=== PATIENT | male | born 1970 | race Hispanic/Latino ===

== ENCOUNTER 2018-11-02 08:24 | Observation (INO) | payer BC ==
--- NOTE | 2018-11-02 09:14 | RAD REPORT ---
EXAM DESCRIPTION: RAD - Chest Single View - 11/02/2018 9:05 am CLINICAL HISTORY: CHEST PAIN Chest pain. COMPARISON: No comparisons FINDINGS: Portable technique limits examination quality. The lungs are grossly clear. The heart is normal in size. No displaced fractures. IMPRESSION: No acute intrathoracic process suspected.
[2018-11-02 09:19] LABS: Absolute Lymphocytes (CBC) 4.2 K/uL (0.7-4.9); Absolute Monocytes 1.3 K/uL (0.1-1.3); Basophils % 0.8 % (0-1.3); Eosinophils % 1.8 % (0-4.4); Hematocrit 48.6 % (39.6-49.0); Lymphocytes % 35.9 % (15.3-44.8); MPV 7.3 fL (7.6-11.3); Monocytes % 10.6 % (3.3-12.3); RBC Red Blood Cell Count 5.23 M/uL (4.33-5.43)
[2018-11-02 09:22] LABS: Protime INR 1.01
[2018-11-02 09:41] LABS: ALT/SGPT 96 U/L (12-78); AST/SGOT 28 U/L (15-37); Albumin 3.9 g/dL (3.4-5.0); Alkaline Phosphatase 55 U/L (45-117); BUN Blood Urea Nitrogen 12 mg/dL (7-18); Bicarbonate 28 mmol/L (21-32); Bilirubin Direct 0.1 mg/dL (0-0.2); Bilirubin Total 0.4 mg/dL (0.2-1.0); Glucose Level 65 mg/dL (74-106); Lipase 105 U/L (73-393); Magnesium 2.5 mg/dL (1.8-2.4); NT PRO-BNP 15 pg/mL (<125); Potassium 3.9 mmol/L (3.5-5.1); Protein, Total 7.4 g/dL (6.4-8.2); Sodium Level 141 mmol/L (136-145); Troponin (Emerg Dept Use Only) < 0.02 ng/mL (0.0-0.045)
--- NOTE | 2018-11-02 10:28 | ER ---
Nurse's Notes [facility] Name: Ciro Shane Age: 48 yrs Sex: Male : 1970 Arrival Date: 11/02/2018 Time: 08:27 Bed 20 Private MD: Mychal Minor T Diagnosis: Other chest pain;Essential (primary) hypertension;Tobacco use;Tobacco abuse counseling Presentation: 11/02 08:36 Presenting complaint: Patient states: intermittent chest pressure and lightheadedness ss that began 1 week ago. Pt reports it is worse when bending over and picking up items. Transition of care: patient was not received from another setting of care. Onset of symptoms was October 26, 2018. Risk Assessment: Do you want to hurt yourself or someone else? Patient reports no desire to harm self or others. Initial Sepsis Screen: Does the patient meet any 2 criteria? No. Patient's initial sepsis screen is negative. Does the patient have a suspected source of infection? No. Patient's initial sepsis screen is negative. Care prior to arrival: None. 08:36 Method Of Arrival: Ambulatory ss 08:36 Acuity: SARAHI 3 ss Historical: - Allergies: 08:37 No Known Allergies; ss - Home Meds: 08:37 Buspirone Oral [Active]; ss - PMHx: 08:37 Anxiety; ss - PSHx: 08:37 None; ss - Immunization history:: Adult Immunizations up to date. - Social history:: Smoking status: Patient uses tobacco products, 1.5 ppd. - Ebola Screening: : Patient denies exposure to infectious person Patient denies travel to an Ebola-affected area in the 21 days before illness onset. - Family history:: not pertinent. Screenin:15 Abuse screen: Denies threats or abuse. Nutritional screening: No deficits noted. em Tuberculosis screening: No symptoms or risk factors identified. Fall Risk None identified. Assessment: 10:10 General: Appears in no apparent distress. comfortable, Behavior is calm, cooperative, em Denies fever. Pain: Complains of pain in chest Pain radiates to left supraclavicular area Pain began x 1 week. Neuro: Level of Consciousness is awake, alert, obeys commands, Oriented to person, place, time, situation, Reports dizziness, since last night after bending over and picking 12 pack of sodas. Cardiovascular: Capillary refill < 3 seconds Patient's skin is warm and dry. Rhythm is sinus rhythm. Respiratory: Airway is patent Respiratory effort is even, unlabored, Respiratory pattern is regular, symmetrical, Breath sounds are clear bilaterally. GI: Abdomen is flat, Reports nausea. : Urine is clear. Derm: Skin is intact, Skin is pink, warm \T\ dry. Musculoskeletal: Range of motion: intact in all extremities. 10:15 General: The previous assessment is accurate, call light remains within reach. 11:01 Reassessment: Patient appears in no apparent distress at this time. Patient and/or em family updated on plan of care and expected duration. Pain level reassessed. Patient is alert, oriented x 3, equal unlabored respirations, skin warm/dry/pink. Patient denies pain at this time. Patient states feeling better. 12:00 Reassessment: Patient appears in no apparent distress at this time. Patient and/or em family updated on plan of care and expected duration. Pain level reassessed. Patient is alert, oriented x 3, equal unlabored respirations, skin warm/dry/pink. pending room assignment Patient denies pain at this time. Vital Signs: 08:37 BP 148 / 70; Pulse 68; Resp 17; Temp 97.2(TE); Pulse Ox 98% on R/A; Weight 92.99 kg; ss Height 5 ft. 10 in. (177.80 cm); Pain 0/10; 09:01 BP 135 / 87; Pulse 75; Resp 20; Pulse Ox 98% on R/A; mh5 10:00 BP 123 / 78; Pulse 72; Resp 17; Temp 97.8(O); Pulse Ox 95% on R/A; mh5 11:01 BP 145 / 83; Pulse 78; Resp 20; Pulse Ox 98% on R/A; mh5 12:31 BP 127 / 70; Pulse 72; Resp 24; Pulse Ox 94% on R/A; mh5 08:37 Body Mass Index 29.41 (92.99 kg, 177.80 cm) ED Course: 08:27 Patient arrived in ED. mr 08:27 Mychal Minor MD is Private Physician. mr 08:34 Quinton Shaw MD is Attending Physician. [facility] 08:37 Triage completed. ss 08:37 Arm band placed on right wrist. ss 08:58 Missed attempt(s): 20 gauge in right forearm. antecubital area. mh5 08:59 Allergy band placed. Placed in gown. Bed in low position. Call light in reach. Side 5 rails up X 1. Adult w/ patient. Pillow given. monitoring specialist on. Pulse ox on. NIBP on. 09:05 XRAY Chest (1 view) In Process Unspecified. EDMS 09:05 Inserted saline lock: 20 gauge in left antecubital area, using aseptic technique. Blood ph collected. 09:12 EKG done, by ED staff, reviewed by Quinton Shaw MD. 5 10:01 Heriberto Fajardo LVN is Primary Nurse. em 10:15 Patient maintains SpO2 saturation greater than 95% on room air. em 10:27 Belkis Magaña MD is Hospitalizing Provider. vinicio 12:49 No provider procedures requiring assistance completed. Patient admitted, IV remains in em place. Administered Medications: 10:28 Drug: Aspirin Chewable Tablet 324 mg Route: PO; em 11:00 Follow up: Response: No adverse reaction em 10:29 Drug: NS 0.9% 1000 ml Route: IV; Rate: 1 bolus; Site: left antecubital; em 10:35 Not Given (Physician Discretion): NS 0.9% 1000 ml IV at 125 ml/hr continuous em 10:47 Drug: Lopressor (metoprolol TARTRATE) 50 mg Route: PO; em 11:35 Follow up: Response: No adverse reaction em 10:47 Drug: Lovenox 1 mg/kg Route: Sub-Q; Site: right lower abdomen; em 11:00 Follow up: Response: No adverse reaction em 10:47 Drug: Nicoderm CQ 21 mg/24 hr 21 mg Route: Transdermal; Site: anterior chest wall; em 11:00 Follow up: Response: No adverse reaction em 12:14 Drug: NS 0.9% 1000 ml Route: IV; Rate: 125 ml/hr; Site: left antecubital; em Outcome: 10:27 Decision to Hospitalize by Provider. vinicio 12:39 Admitted to Tele accompanied by tech, family with patient, via wheelchair, room 425, em with chart, Report called to ANN Gonzalez 12:39 Condition: good em 12:39 Instructed on the need for admit, Demonstrated understanding of instructions. 12:52 Patient left the ED. em Signatures: Dispatcher [employer] Quinton Bansal MD MD cha Rivera, Akosua mr Scotty, Heriberto, MANAGER CLINICAL MANAGER CLINICAL em Bria Li RN RN ss Hall, Patricia, RN RN Alma Cheung [facility] Corrections: (The following items were deleted from the chart) 12:51 12:39 Admitted to Tele accompanied by tech, family with patient, via wheelchair, room em 425, with chart, Report called to ANN Gonzalez em
--- NOTE | 2018-11-02 10:28 | EDPHYS ---
Physician Documentation [facility] Name: Ciro Shane Age: 48 yrs Sex: Male : 1970 Arrival Date: 11/02/2018 Time: 08:27 Bed 20 Private MD: Mychal Minor T ED Physician Quinton Shaw HPI: 11/02 10:24 This 48 yrs old Male presents to ER via Ambulatory with complaints of Chest ivnicio Pressure. 10:24 The patient or guardian reports chest pain that is located primarily in the substernal vinicio area, epigastric area. Onset: 5 day(s) ago. The pain radiates to the right arm, the left shoulder. Associated signs and symptoms: The patient has no apparent associated signs or symptoms. The chest pain is described as a heaviness, a pressure. Duration: The patient or guardian reports multiple episodes, with no pattern. Modifying factors: The symptoms are alleviated by nothing. the symptoms are aggravated by exertion. Severity of pain: At its worst the pain was. Historical: - Allergies: 08:37 No Known Allergies; ss - Home Meds: 08:37 Buspirone Oral [Active]; ss - PMHx: 08:37 Anxiety; ss - PSHx: 08:37 None; ss - Immunization history:: Adult Immunizations up to date. - Social history:: Smoking status: Patient uses tobacco products, 1.5 ppd. - Ebola Screening: : Patient denies exposure to infectious person Patient denies travel to an Ebola-affected area in the 21 days before illness onset. - Family history:: not pertinent. ROS: 10:25 Constitutional: Negative for fever, chills, and weight loss, Eyes: Negative for injury, vinicio pain, redness, and discharge, ENT: Negative for injury, pain, and discharge, Neck: Negative for injury, pain, and swelling, Respiratory: Negative for shortness of breath, cough, wheezing, and pleuritic chest pain, Abdomen/GI: Negative for abdominal pain, nausea, vomiting, diarrhea, and constipation, Back: Negative for injury and pain, : Negative for injury, bleeding, discharge, and swelling, MS/Extremity: Negative for injury and deformity, Skin: Negative for injury, rash, and discoloration, Neuro: Negative for headache, weakness, numbness, tingling, and seizure, Psych: Negative for depression, anxiety, suicide ideation, homicidal ideation, and hallucinations, Allergy/Immunology: Negative for hives, rash, and allergies, Endocrine: Negative for neck swelling, polydipsia, polyuria, polyphagia, and marked weight changes, Hematologic/Lymphatic: Negative for swollen nodes, abnormal bleeding, and unusual bruising. 10:25 Cardiovascular: Positive for chest pain, of the left supraclavicular area, left clavicle, anterior aspect of left upper chest, left lateral anterior chest and left lateral posterior chest. Exam: 10:25 Constitutional: This is a well developed, well nourished patient who is awake, alert, vinicio and in no acute distress. Head/Face: Normocephalic, atraumatic. Eyes: Pupils equal round and reactive to light, extra-ocular motions intact. Lids and lashes normal. Conjunctiva and sclera are non-icteric and not injected. Cornea within normal limits. Periorbital areas with no swelling, redness, or edema. ENT: Nares patent. No nasal discharge, no septal abnormalities noted. Tympanic membranes are normal and external auditory canals are clear. Oropharynx with no redness, swelling, or masses, exudates, or evidence of obstruction, uvula midline. Mucous membranes moist. Neck: Trachea midline, no thyromegaly or masses palpated, and no cervical lymphadenopathy. Supple, full range of motion without nuchal rigidity, or vertebral point tenderness. No Meningismus. Chest/axilla: Normal chest wall appearance and motion. Nontender with no deformity. No lesions are appreciated. Cardiovascular: Regular rate and rhythm with a normal S1 and S2. No gallops, murmurs, or rubs. Normal PMI, no JVD. No pulse deficits. Respiratory: Lungs have equal breath sounds bilaterally, clear to auscultation and percussion. No rales, rhonchi or wheezes noted. No increased work of breathing, no retractions or nasal flaring. Abdomen/GI: Soft, non-tender, with normal bowel sounds. No distension or tympany. No guarding or rebound. No evidence of tenderness throughout. Back: No spinal tenderness. No costovertebral tenderness. Full range of motion. Male : Normal genitalia with no discharge or lesions. Skin: Warm, dry with normal turgor. Normal color with no rashes, no lesions, and no evidence of cellulitis. MS/ Extremity: Pulses equal, no cyanosis. Neurovascular intact. Full, normal range of motion. Neuro: Awake and alert, GCS 15, oriented to person, place, time, and situation. Cranial nerves II-XII grossly intact. Motor strength 5/5 in all extremities. Sensory grossly intact. Cerebellar exam normal. Normal gait. Psych: Awake, alert, with orientation to person, place and time. Behavior, mood, and affect are within normal limits. 10:25 Musculoskeletal/extremity: DVT Exam: No signs of deep vein thrombosis. no pain, no swelling, no tenderness, negative Homans' sign noted on exam, no appreciated bluish discoloration, no erythema, no increased warmth. Vital Signs: 08:37 BP 148 / 70; Pulse 68; Resp 17; Temp 97.2(TE); Pulse Ox 98% on R/A; Weight 92.99 kg; ss Height 5 ft. 10 in. (177.80 cm); Pain 0/10; 09:01 BP 135 / 87; Pulse 75; Resp 20; Pulse Ox 98% on R/A; mh5 10:00 BP 123 / 78; Pulse 72; Resp 17; Temp 97.8(O); Pulse Ox 95% on R/A; mh5 11:01 BP 145 / 83; Pulse 78; Resp 20; Pulse Ox 98% on R/A; mh5 12:31 BP 127 / 70; Pulse 72; Resp 24; Pulse Ox 94% on R/A; mh5 08:37 Body Mass Index 29.41 (92.99 kg, 177.80 cm) ss MDM: 08:34 Patient medically screened. [facility] 10:26 Data reviewed: vital signs, nurses notes, lab test result(s), EKG, radiologic studies, vinicio plain films. 11/02 08:38 Order name: Basic Metabolic Panel; Complete Time: 10:22 [facility] 11/02 08:38 Order name: CBC with Diff; Complete Time: 10:22 [facility] 11/02 08:38 Order name: LFT's; Complete Time: 10:22 [facility] 11/02 08:38 Order name: Magnesium; Complete Time: 10:22 [facility] 11/02 08:38 Order name: NT PRO-BNP; Complete Time: 10:22 [facility] 11/02 08:38 Order name: PT-INR; Complete Time: 10:22 [facility] 11/02 08:38 Order name: Troponin (emerg Dept Use Only); Complete Time: 10:22 [facility] 11/02 08:38 Order name: XRAY Chest (1 view); Complete Time: 10:22 [facility] 11/02 08:38 Order name: Lipase; Complete Time: 10:22 [facility] 11/02 10:49 Order name: Urine Dipstick--Ancillary (enter results) 11/02 08:36 Order name: EKG; Complete Time: 08:36 11/02 08:36 Order name: EKG - Nurse/Tech; Complete Time: 08:38 11/02 08:38 Order name: Cardiac monitoring; Complete Time: 09:59 [facility] 11/02 08:38 Order name: EKG - Nurse/Tech; Complete Time: 10:00 [facility] 11/02 08:38 Order name: IV Saline Lock; Complete Time: 10:00 [facility] 11/02 08:38 Order name: Labs collected and sent; Complete Time: 10:00 [facility] 11/02 08:38 Order name: O2 Per Protocol; Complete Time: 10:00 [facility] 11/02 08:38 Order name: O2 Sat Monitoring; Complete Time: 10:00 [facility] 11/02 10:24 Order name: PO challenge: juice; Complete Time: 10:35 [facility] Administered Medications: 10:28 Drug: Aspirin Chewable Tablet 324 mg Route: PO; em 11:00 Follow up: Response: No adverse reaction em 10:29 Drug: NS 0.9% 1000 ml Route: IV; Rate: 1 bolus; Site: left antecubital; em 10:35 Not Given (Physician Discretion): NS 0.9% 1000 ml IV at 125 ml/hr continuous em 10:47 Drug: Lopressor (metoprolol TARTRATE) 50 mg Route: PO; em 11:35 Follow up: Response: No adverse reaction em 10:47 Drug: Lovenox 1 mg/kg Route: Sub-Q; Site: right lower abdomen; em 11:00 Follow up: Response: No adverse reaction em 10:47 Drug: Nicoderm CQ 21 mg/24 hr 21 mg Route: Transdermal; Site: anterior chest wall; em 11:00 Follow up: Response: No adverse reaction em 12:14 Drug: NS 0.9% 1000 ml Route: IV; Rate: 125 ml/hr; Site: left antecubital; em Disposition: 11/02/18 10:27 Hospitalization ordered by Belkis Magaña for Observation. Preliminary diagnosis are Other chest pain, Essential (primary) hypertension, Tobacco use, Tobacco abuse counseling. - Bed requested for Telemetry/MedSurg (observation). - Status is Observation. em - Condition is Stable. - Problem is new. - Symptoms have improved. UTI on Admission? No Signatures: Dispatcher [employer] EDTX Quinton Shaw MD MD cha Munoz, Edgar, STOCK HANDLER STOCK HANDLER em Bria Li RN RN ss Ashely Rodney Corrections: (The following items were deleted from the chart) 11:00 10:27 Hospitalization Ordered by Belkis Magaña MD for Observation. Preliminary diagnosis eb is Other chest pain; Essential (primary) hypertension; Tobacco use; Tobacco abuse counseling. Bed requested for Telemetry/MedSurg (observation). Status is Observation. Condition is Stable. Problem is new. Symptoms have improved. UTI on Admission? No. vinicio 11:51 11:00 11/02/2018 10:27 Hospitalization Ordered by Belkis Magaña MD for Observation. eb Preliminary diagnosis is Other chest pain; Essential (primary) hypertension; Tobacco use; Tobacco abuse counseling. Bed requested for Telemetry/MedSurg (observation). Status is Observation. Condition is Stable. Problem is new. Symptoms have improved. UTI on Admission? No. eb 12:52 11:51 11/02/2018 10:27 Hospitalization Ordered by Belkis Magaña MD for Observation. em Preliminary diagnosis is Other chest pain; Essential (primary) hypertension; Tobacco use; Tobacco abuse counseling. Bed requested for Telemetry/MedSurg (observation). Status is Observation. Condition is Stable. Problem is new. Symptoms have improved. UTI on Admission? No. eb
[2018-11-02] MEDS ORDERED: NA CHLORIDE 0.9% 2,000 ML ONE (10:32)
[2018-11-02] MEDS ORDERED: ASPIRIN 81 MG CHEWABLE TABLET ONE (10:32)
[2018-11-02] MEDS ORDERED: NICOTINE 21 MG/PAT TD ONE (10:47)
[2018-11-02] MEDS ORDERED: METOPROLOL TAR 50 MG TAB ONE (10:47)
[2018-11-02] MEDS ORDERED: ENOXAPARIN 100 MG/ML SYR SQ ONE (10:47)
[2018-11-02 12:25] LABS: Urine Blood TRACE (NEG); Urine Glucose NEGATIVE (NEG); Urine Protein NEGATIVE (NEG); Urine Specific Gravity 1.005 (1.005-1.030)
[2018-11-02] MEDS ORDERED: ALPRAZOLAM 0.25 MG TABLET PO PRN (13:10)
[2018-11-02] MEDS ORDERED: MORPHINE 4 MG/ML SYR IV PRN (13:10)
[2018-11-02] MEDS ORDERED: ZOLPIDEM TARTRATE 5 MG TABLET PO PRN (13:10)
[2018-11-02] MEDS ORDERED: ACETAMINOPHEN 500 MG TAB PO PRN (13:10)
[2018-11-02] MEDS ORDERED: LORazepam 2 MG/ML VIAL IV PRN (13:10)
[2018-11-02] MEDS ORDERED: NITROGLYCERIN 0.4 MG/TAB SL PRN (13:51)
[2018-11-02] MEDS: THIAMINE HCL 100 MG TABLET PO SCH (14:10)
[2018-11-02] MEDS: FOLIC ACID 1 MG TABLET PO SCH (14:10)
--- NOTE | 2018-11-02 14:49 | EKG ---
Test Date: 2018-11-02 Test Time: 08:37:48 Gate Watchman: NESTOR MEASUREMENT RESULTS: Intervals: Rate: 77 NC: 146 QRSD: 96 QT: 368 QTc: 416 [place]: P: -19 NC: 146 QRS: 27 T: 35 INTERPRETIVE STATEMENTS: Normal sinus rhythm Normal ECG No previous ECG available for comparison Electronically Signed On 11-02-18 14:49:37 [employer] [employer] by Jaime Palomo
--- NOTE | 2018-11-02 16:50 | ECHO ---
HEIGHT: 5 ft 10 in WEIGHT: 20 lb 0 oz DATE OF STUDY: 11/02/[address]: Belkis Magaña MD 2-DIMENSIONAL: YES M.MODE: YES DOPPLER: YES COLOR FLOW: YES TDS: PORTABLE: DEFINITY: BUBBLE STUDY: DIAGNOSIS: CHEST PAIN CARDIAC HISTORY: CATHERIZATION: NO SURGERY: NO PROSTHETIC VALVE: NO PACEMAKER: NO MEASUREMENTS (cm) DIASTOLIC (NORMALS) SYSTOLIC (NORMALS) IVSd 0.9 (0.6-1.2) LA Diam 4.2 (1.9-4.0) LVEF 48% LVIDd 5.6 (3.5-5.7) LVIDs 4.2 (2.0-3.5) %FS 25% LVPWd 1.0 (0.6-1.2) Ao Diam 3.1 (2.0-3.7) 2 DIMENSIONAL ASSESSMENT: RIGHT ATRIUM: NORMAL LEFT ATRIUM: DILATED RIGHT VENTRICLE: NORMAL LEFT VENTRICLE: NORMAL TRICUSPID VALVE: NORMAL MITRAL VALVE: NORMAL PULMONIC VALVE: NORMAL AORTIC VALVE: NORMAL PERICARDIAL EFFUSION: NONE AORTIC ROOT: NORMAL LEFT VENTRICULAR WALL MOTION: MILD GLOBAL HYPOKINESIS. DOPPLER/COLOR FLOW: NORMAL COMMENTS: MILDLY DEPRESSED LEFT VENTRICULAR EJECTION FRACTION. DILATED LEFT ATRIUM. TECHNOLOGIST: BEATRICE ESTEVEZ
[2018-11-02] MEDS: BUSPIRONE HCL 15 MG TABLET PO SCH (20:57)
[2018-11-02] MEDS: CARVEDILOL 6.25 MG TAB PO SCH (20:58)
[2018-11-02] MEDS ORDERED: ATORVASTATIN 40 MG TAB PO SCH (21:00)
--- NOTE | 2018-11-03 02:20 | HP ---
Date of Admission: 11/02/2018 Chief Complaint: Chest pain. Consultants: Cardiology, Dr. Palomo. History Of Present Illness: The patient is a 48-year-old male with past medical history of generaliz ed anxiety disorder, treated with Wellbutrin; history of smoking over the past 25 years, a pack and a half per day, who was in his usual state of health until day prior to admission when the patient had sudden onset of dizziness and lightheadedness with near syncopal episode with lifting groceries from the cart and moving into his car. The patient experienced some chest tightness which was substernal , nonradiating, not associated with any nausea, vomiting, palpitations, or diaphoresis. The patient' s pain lasted a few minutes and then resolved. The patient has noted increasing shortness of breath, likely related to his smoking. The patient had recurrence of his chest tightness and therefore came into the ER for further evaluation. Upon arrival, his vital signs were stable. He was afebrile. H is workup revealed negative cardiac enzymes. No changes on EKG. His white blood cell count was mild ly elevated at 11.8. Chest x-ray was clear. The patient was then referred for admission for chest p ain, rule out ACS. When seen in the ER, he was awake, alert, oriented x3. Some mild distress. Salvador juan, chest pain-free at that time. Past Medical History: Generalized anxiety disorder. Past Surgical History: The patient has had ingrown toenail repair. Allergies: NO KNOWN DRUG ALLERGIES. Medications: Wellbutrin 15 mg b.i.d. Social History: Patient smokes a pack and a half per day for the past 25 years or so. The patient d rinks alcohol on a semi regular basis every other day to daily and drinks about 6-12 beers. The claudia ent is , has 2 children. Works as a health care consultant. Independent in his activities of daily living. Family History: The patient does report some history of coronary artery disease. Father had heart a ttack at the age of 65, at 75. Review of Systems: Ten point system reviewed, negative except as per HPI. Physical Examination: Vital Signs: Temperature 97.2, heart rate 68, blood pressure 148/70, respirations 17, O2 98% on room air. General: Awake, alert, oriented x3. Appears older than stated age. Some mild distress. Male. HEENT: Normocephalic, atraumatic. PERRLA. EOMI. Moist mucous membranes. The oropharynx is clear. Conjunctivae anicteric. Neck: Supple. No JVD. Trachea midline. CV: S1, S2. Regular rate and rhythm. Peripheral pulses present. No murmurs. Respiratory: Clear to auscultation bilaterally. No wheezing or stridor. No use of accessory muscle s. Gastrointestinal: Abdomen is soft, nontender, nondistended. Positive bowel sounds. No guarding or rigidity. Extremities: No clubbing, cyanosis, or edema. No calf tenderness. Neuro: Cranial nerves 2 through 12 intact grossly. No focal neurological deficits. Speech is hugo l. Strength is 5/5 bilateral upper and lower extremities. Sensation intact to light touch. Skin: No rashes. Normal skin turgor. Psych: Mood is good. Affect is full. Insight and judgment are fair. Laboratory Data: UA is negative. Sodium 141, potassium 3.9, chloride 106, CO2 28, BUN 12, creatinin e 0.97, glucose 65, calcium 8.5, magnesium 2.5. Troponin, less than 0.02. INR 1.01. WBC 11.8, H an d H 16.6 and 48.6, platelets 306, neutrophils 50.9%. Chest x-ray shows no acute intrathoracic proces s. EKG shows normal sinus rhythm, rate of 77; no previous for comparison. Assessment And Plan: A 48-year-old male with, 1.Chest pain, rule out acute coronary syndrome. We will start on chest pain guidelines, obtain seri al cardiac enzymes. Consult Cardiology. We will obtain echocardiogram. 2.Dizziness, near syncopal episode. We will obtain carotid artery ultrasound and orthostatic vital signs. 3.Nicotine dependence with cigarette smoking, continuous, counseled. 4.Generalized anxiety disorder. Continue Wellbutrin. 5.Alcohol dependence. We will continue with Ativan p.r.n. and start on multivitamins, thiamine, and folate. Watch for signs of alcohol withdrawal. The patient has been counseled extensively. 6.Gastrointestinal and deep venous thrombosis prophylaxis with proton pump inhibitor and Lovenox. Plan: Admit the patient to Med-Surg, [facility] as observation. RENETTA Voice ID: [id number]
[2018-11-03 04:33] VITALS: TEMP 97.5
[2018-11-03 05:44] LABS: Absolute Lymphocytes (CBC) 3.4 K/uL (0.7-4.9); Absolute Neutrophil 5.1 K/uL (1.8-8.0); Basophils % 0.7 % (0-1.3); Eosinophils % 2.8 % (0-4.4); Hematocrit 48.2 % (39.6-49.0); Lymphocytes % 34.4 % (15.3-44.8); MPV 7.7 fL (7.6-11.3); Monocytes % 10.2 % (3.3-12.3); RBC Red Blood Cell Count 5.11 M/uL (4.33-5.43)
[2018-11-03 06:10] LABS: Potassium 4.7 mmol/L (3.5-5.1)
--- NOTE | 2018-11-03 08:29 | RAD REPORT ---
EXAM DESCRIPTION: - CP - 11/02/2018 11:16 pm CLINICAL HISTORY: Dizziness, syncope COMPARISON: None. TECHNIQUE: Real-time sonographic evaluation of both carotid systems was performed. Spencer scale and Do ppler interrogation were performed with waveform tracing bilaterally. FINDINGS: Normal high resistance waveforms are noted in both external carotid arteries. The common c arotid arteries and internal carotid arteries show normal low resistance waveforms. No significant plaque formation is seen. Peak systolic and end diastolic velocity values and the ICA/ CCA ratios are in the non-hemodynamically significant range. Antegrade flow seen in both vertebral arteries. Velocity values and ratios were recorded and are retained in the patient's imaging records. IMPRESSION: No significant atherosclerotic changes noted. No evidence of a hemodynamically significant stenosis.
[2018-11-03] MEDS ORDERED: LISINOPRIL 10 MG TAB PO SCH (09:00)
[2018-11-03] MEDS ORDERED: NICOTINE 21 MG/PAT TD SCH (09:00)
[2018-11-03] MEDS ORDERED: ASPIRIN EC 81 MG TAB PO SCH (09:00)
[2018-11-03] MEDS ORDERED: ENOXAPARIN 40 MG/0.4 ML SQ SCH (09:00)
[2018-11-03] MEDS: FOLIC ACID 1 MG TABLET PO SCH (09:05)
[2018-11-03] MEDS: THIAMINE HCL 100 MG TABLET PO SCH (09:06)
[2018-11-03] MEDS: CARVEDILOL 6.25 MG TAB PO SCH (09:06)
[2018-11-03] MEDS: BUSPIRONE HCL 15 MG TABLET PO SCH (09:06)
[2018-11-03 09:07] VITALS: BP 106/70
[2018-11-03 10:11] VITALS: O2SAT 99
--- NOTE | 2018-11-03 13:56 | CON ---
Chief Complaint: Chest pain. History Of Present Illness: Mr. Shane had an episode of chest pain a month ago, a sharp pain, lasted 5 seconds or so, center part of his chest. He refused to be evaluated. His family wanted him to be seen. Yesterday he was shopping. He bent low to pick something off a low shelf. When he stood up, he felt lightheaded and the left pectoral muscle felt numb. His left arm felt numb for about 10 or 15 seconds. Since he has been in the hospital, his troponins have been normal. His EKGs have been n ormal. He has had no recurrence of his symptoms. He has had a carotid artery ultrasound that reveal s no abnormalities. He has had an echocardiogram that reveals mild global hypokinesis. LVEF 48%. A chest x-ray is unremarkable, and his laboratory tests are unremarkable. Troponins are both less yasmin n 0.02. Total cholesterol is 222, LDL is 153. Impression: The patient is not having an acute coronary syndrome. He could be discharged today. He should quit smoking. He smokes a pack and a half a day. He should be on a statin, and I will leave it up to Dr. Magaña to decide which one. Dr. Minor is his outpatient physician. I would think Lipito r 20 mg a day would be a good choice, and as an outpatient, he should have a stress test. He can aníbal l my office on November 07, 2018, to schedule an outpatient nuclear stress test to see if his chest juan n is anything to be concerned about, but basically treating risk factors, high cholesterol and tobacc o would be the best therapy for him. IVETH/YANELIS Voice ID: [id number] Report ID: [id number]
--- NOTE | 2018-11-03 23:23 | DS ---
Date of Discharge: 11/03/2018 Ecommerce Marketing Manager: Dr. Palomo with Cardiology. Discharge Diagnoses: 1.Chest pain, acute coronary syndrome ruled out. 2.Cardiomyopathy, likely alcohol induced. 3.Dizziness, near syncopal episode. Carotid artery ultrasound negative. Orthostatic negative. 4.Nicotine dependence with cigarette smoking, continuous. 5.Generalized anxiety disorder, on Wellbutrin. 6.Alcohol dependence, counseled. 7.Mixed hyperlipidemia. Hospital Course: The patient is a 48-year-old male, who comes in with chest pain and dizziness with near syncopal episode. The patient has history of smoking over 25 years, [id number], an d is alcohol dependent with 6-12 packs of beer daily. The patient's workup revealed normal cardiac e nzymes. ACS was ruled out. EKG did not show any acute changes. The patient did have some mildly el evated white blood cell count, which normalized. His chest x-ray was clear. Repeat EKG did not show any acute changes. Echocardiogram was done, which showed EF of 48% with hypokinesis. The patient w as seen by [facility], Dr. Palomo, who recommended outpatient nuclear stress testing. The patient was counseled extensively regarding complete abstinence from smoking and alcohol. The patient voiced understanding. The patient's carotid ultrasound was negative for any significant stenosis. His ort hostatic vital signs were also negative. He did have slight drop in blood pressure from sitting to s tanding position. He was encouraged to wait before standing up from a seated position. He voiced un derstanding. The patient was then cleared for discharge and he was no longer having any chest pain, did not have any further dizziness. He was able to ambulate without difficulty. Medications: As per medication reconciliation list. Followup: Follow up with primary care physician in 2-3 days. Follow up with [facility], Dr. Chago mahan, in 1 week for outpatient stress test. Return to ER for worsening condition. Diet: Heart healthy. Activity: As tolerated. Physical Examination: General: Awake, alert, oriented, no acute distress. CV: S1, S2. No murmurs. Respiratory: Moving air well bilaterally. Abdomen: Soft, nontender, nondistended. Positive bowel sounds. Extremities: No clubbing, cyanosis, edema. Neurologic: Nonfocal. SA/MODL Voice ID: [id number] Report ID: [id number]
== END 2018-11-03 12:49 | disposition home or self-care (01) ==
LOC: ER 08:24 → ERHOLD 11:12 → 4TH 12:31
PROVIDERS: ADMIT Family Medicine; ATTEND Family Medicine
DX: R07.9 Chest pain, unspecified (principal); I42.9 Cardiomyopathy, unspecified; R42 Dizziness and giddiness; R55 Syncope and collapse; F17.210 Nicotine dependence, cigarettes, uncomplicated; F41.1 Generalized anxiety disorder; F10.20 Alcohol dependence, uncomplicated; E78.2 Mixed hyperlipidemia
CPT/HCPCS: 36415; 71045; 80048; 80061; 80076; 81003; 83690; 83735; 83880; 84484; 85025; 85610; 87070; 87205; 93005; 93306; 93880; 94760; 96372; 99285; G0378; J1650; J7030

== ENCOUNTER 2024-10-14 10:23 | Day surgery (SDC) | payer BC ==
[2024-10-10 12:11] LABS: Absolute Basophils 0.1 K/uL (0-0.5); Absolute Eosinophils 0.2 K/uL (0-0.5); Absolute Lymphocytes (CBC) 2.9 K/uL (0.7-4.9); Absolute Monocytes 0.7 K/uL (0.1-1.3); Absolute Neutrophil 4.6 K/uL (1.8-8.0); Basophils % 0.8 % (0-1.3); Eosinophils % 2.1 % (0-4.4); Hematocrit 44.1 % (39.6-49.0); Hemoglobin 14.7 g/dL (13.6-17.9); Lymphocytes % 34.1 % (15.3-44.8); MCH 31.7 pg (27.0-35.0); MCHC 33.5 g/dL (32.0-36.0); MCV 94.7 fL (80-100); MPV 7.2 fL (7.6-11.3); Monocytes % 8.7 % (3.3-12.3); Neutrophils % 54.3 % (41.7-73.7); Platelets 249 thou/uL (152-406); RBC Red Blood Cell Count 4.65 M/uL (4.33-5.43); Red Cell Distribution Width 13.7 % (12.1-15.2)
[2024-10-10 12:25] LABS: Anion Gap 6.8 mEq/L (5.0-15.0); Potassium 3.8 mEq/L (3.5-5.1)
[2024-10-14] MEDS: Ringers Lactate 1,000 ML IV ONE (10:35)
[2024-10-14] MEDS ORDERED: LIDOCAINE 1% MPF 2 ML AMPULE ONE (10:55)
[2024-10-14] MEDS ORDERED: propofoL 200 MG/20 ML VIAL IV ONE (10:55)
[2024-10-14 12:51] VITALS: TEMP 97.6
[2024-10-14 12:52] VITALS: BP 120/87; O2SAT 96
== END 2024-10-14 12:40 | disposition home or self-care (01) ==
LOC: OR 10:23
PROVIDERS: ATTEND Surgery
PROC: 0DB78ZX Excision of Stomach, Pylorus, Via Natural or Artificial Opening Endoscopic, Diagnostic (ICD-10-PCS; 2024-10-14)
PROC: 0DB68ZX Excision of Stomach, Via Natural or Artificial Opening Endoscopic, Diagnostic (ICD-10-PCS; 2024-10-14)
PROC: 0DB28ZX Excision of Middle Esophagus, Via Natural or Artificial Opening Endoscopic, Diagnostic (ICD-10-PCS; 2024-10-14)
PROC: 0DB48ZX Excision of Esophagogastric Junction, Via Natural or Artificial Opening Endoscopic, Diagnostic (ICD-10-PCS; 2024-10-14)
PROC: 0DJD8ZZ Inspection of Lower Intestinal Tract, Via Natural or Artificial Opening Endoscopic (ICD-10-PCS; principal; 2024-10-14 12:00)
PROC: 0DB98ZX Excision of Duodenum, Via Natural or Artificial Opening Endoscopic, Diagnostic (ICD-10-PCS; 2024-10-14 12:00)
DX: Z12.11 Encounter for screening for malignant neoplasm of colon (principal); K21.9 Gastro-esophageal reflux disease without esophagitis; K64.8 Other hemorrhoids; K44.9 Diaphragmatic hernia without obstruction or gangrene; K29.80 Duodenitis without bleeding; K29.50 Unspecified chronic gastritis without bleeding
CPT/HCPCS: 45378; 43239; 85025; 80048; 36415; 88312; 88305; J2704; J7120